=== PATIENT | male | born 1975 | race Caucasian/White ===

== ENCOUNTER → 2023-08-20 06:13 | Outpatient (CLI) | payer OTHER ==
[2023-08-20 08:29] LABS: HEMATOCRIT 35.9 % (39.0-48.0); MEAN CELL VOLUME 78.7 fL (80.0-100.00); MEAN CORPUSCULAR HEMOGLOBIN 26.4 pg (27.00-32.0); MEAN CORPUSCULAR HGB CONC 33.5 g/dl (32.0-36.0); PLATELET COUNT 209 K/uL (150-450); RED BLOOD COUNT 4.57 M/uL (4.00-6.00); RED CELL DISTRIBUTION WIDTH 14.2 % (11.5-14.5)
[2023-08-20 08:42] LABS: % SATURACION 36.9 % (20-50); ALBUMIN 4.1 gm/dL (3.4-5.0); BILIRUBIN TOTAL 0.93 mg/dL (0.3-1.2); CALCIUM 9.2 mg/dL (8.5-10.1); CREATININE SERUM 0.83 mg/dL (0.70-1.30); GFR 99.31; GLOBULINA 3.5 G/DL (2.4-3.5); POTASSIUM 4.22 mEq/L (3.5-5.1); TOTAL PROTEIN 7.6 gm/dL (6.4-8.2); TSH 1.26 uIU/mL (0.358-3.74)
[2023-08-20 12:36] LABS: MANUAL PLATELET COUNT 398
[2023-08-20 12:38] LABS: PLATELET ESTIMATE NORMAL (NORMAL)
[2023-08-20 13:58] LABS: FOLIC ACID 17.89 ng/ml (4.78-20)
[2023-08-21 13:12] LABS: ANTI THYROID PEROXIDASE < 9 IU/mL (0-34); ERYTHROPOIETIN 9.7 mIU/mL (2.6-18.5); hgb a 97.4 % (96.4-98.8); hgb a2 2.6 % (1.8-3.2); hgb f 0 % (0.0-2.0); hgb s 0 % (0.0)
[2023-08-22 19:10] LABS: g6pd quant 237 (127-427); rbc 4.69 x10E6/uL (4.14-5.80)
[2023-08-23 07:10] LABS: INTRINSIC FACTOR BLOCKING AB 0.9 AU/mL (0.0-1.1)
== END | disposition home or self-care (01) ==
LOC: LAB 06:13
PROVIDERS: ATTEND Internal Medicine Hematology & Oncology
DX: I48.20 Chronic atrial fibrillation, unspecified (principal); I10 Essential (primary) hypertension; D63.8 Anemia in other chronic diseases classified elsewhere; D50.8 Other iron deficiency anemias; R79.9 Abnormal finding of blood chemistry, unspecified; K76.89 Other specified diseases of liver; D51.1 Vitamin B12 deficiency anemia due to selective vitamin B12 malabsorption with proteinuria; D63.1 Anemia in chronic kidney disease; E03.8 Other specified hypothyroidism; E06.3 Autoimmune thyroiditis

== ENCOUNTER 2023-08-20 07:30 | Outpatient (CLI) | payer OTHER | END 2023-08-20 07:40 | disposition home or self-care (01) | LOC: SONOGRAMA 07:30 | PROVIDERS: ATTEND Internal Medicine Hematology & Oncology | DX: I48.20 Chronic atrial fibrillation, unspecified (principal); I10 Essential (primary) hypertension; D63.8 Anemia in other chronic diseases classified elsewhere; E04.2 Nontoxic multinodular goiter ==

== ENCOUNTER → 2024-04-13 06:05 | Outpatient (CLI) | payer OTHER ==
[2024-04-13 07:18] LABS: HEMATOCRIT 38.5 % (39.0-48.0); HEMOGLOBIN 12.6 g/dL (13-16.00); MEAN CELL VOLUME 80.9 fL (80.0-100.00); MEAN CORPUSCULAR HEMOGLOBIN 26.4 pg (27.00-32.0); MEAN CORPUSCULAR HGB CONC 32.7 g/dl (32.0-36.0); PLATELET COUNT 214 K/uL (150-450); RED BLOOD COUNT 4.76 M/uL (4.00-6.00); RED CELL DISTRIBUTION WIDTH 14.6 % (11.5-14.5)
[2024-04-13 08:19] LABS: MANUAL PLATELET COUNT 302
[2024-04-13 08:20] LABS: PLATELET ESTIMATE NORMAL (NORMAL)
== END | disposition home or self-care (01) ==
LOC: LAB 06:05
PROVIDERS: ATTEND Internal Medicine Hematology & Oncology
DX: D72.818 Other decreased white blood cell count (principal); I48.20 Chronic atrial fibrillation, unspecified; I10 Essential (primary) hypertension; D63.8 Anemia in other chronic diseases classified elsewhere; D51.3 Other dietary vitamin B12 deficiency anemia; D50.8 Other iron deficiency anemias; R79.9 Abnormal finding of blood chemistry, unspecified